=== PATIENT | female | born 1945 | race Caucasian/White ===

== ENCOUNTER 2018-05-17 12:37 | Emergency (ER) | payer OTHER ==
[~2018-05-17] VITALS: Ht 149.9 cm; Wt 55.8 kg
[~2018-05-17 12:37] MED LIST: B-COMPLEX-VITA1 EACH PO; CITRUCEL CLEAR539 G1 PO; CLONAZEPAM 0.50.5 M1 PO; NEXIUM 40 MG CA40 M1 PO; SIMVASTATIN20 MG PO
[2018-05-17] MEDS ORDERED: CRESTOR20 MG PO (12:57)
[2018-05-17] MEDS ORDERED: COZAAR 25 MG TA25 M1 PO (12:57)
[2018-05-17] MEDS ORDERED: NEURONTIN300 MG PO (12:57)
[2018-05-17] MEDS ORDERED: ERGOCALCIF50000 UNIT PO (12:59)
[2018-05-17] MEDS ORDERED: PIOGLITAZONE30 MG PO (13:00)
[2018-05-17] MEDS ORDERED: ZOFRAN ODT4 MG PO (13:00)
[2018-05-17 14:47] VITALS: BP 132/68
== END 2018-05-17 14:48 | disposition home or self-care (01) ==
LOC: M.ERS 12:37
DX: S92.152A Displaced avulsion fracture (chip fracture) of left talus, initial encounter for closed fracture (principal); K21.9 Gastro-esophageal reflux disease without esophagitis; E78.5 Hyperlipidemia, unspecified; F41.9 Anxiety disorder, unspecified; M19.90 Unspecified osteoarthritis, unspecified site; F17.200 Nicotine dependence, unspecified, uncomplicated; Z90.49 Acquired absence of other specified parts of digestive tract; Z90.710 Acquired absence of both cervix and uterus; Z88.1 Allergy status to other antibiotic agents; Z88.0 Allergy status to penicillin; X50.1XXA Overexertion from prolonged static or awkward postures, initial encounter; Y93.89 Activity, other specified; Y92.89 Other specified places as the place of occurrence of the external cause; Y99.8 Other external cause status

== ENCOUNTER → 2018-07-25 | Outpatient (CLI) | payer OTHER ==
[~2018-07-25] MED LIST changes: +COZAAR 25 MG TA25 M1 PO; +CRESTOR20 MG PO; +ERGOCALCIF50000 UNIT PO; +NEURONTIN300 MG PO; +PIOGLITAZONE30 MG PO; +ZOFRAN ODT4 MG PO
== END ==
LOC: M.RAD 07-18 09:00
DX: M81.0 Age-related osteoporosis without current pathological fracture (principal)

== ENCOUNTER 2019-06-29 08:21 | Inpatient (IN) | payer OTHER ==
[~2019-06-29] VITALS: Ht 149.9 cm; Wt 48.1 kg
[2019-06-29 08:27] VITALS: BP 153/55
[2019-06-29] MEDS ORDERED: OMEPRAZOLE40 MG PO (08:45)
[2019-06-29] MEDS ORDERED: GLIMEPIRIDE1 MG PO (08:45)
[2019-06-29] MEDS ORDERED: VITAMIN D250 MCG PO (08:46)
[2019-06-29] MEDS ORDERED: ZANTAC 150MG T150 M1 PO (08:46)
[2019-06-29 09:17] LABS: ABSOLUTE BASOPHILS 0.1 thou/uL (0.0-0.2); ABSOLUTE LYMPHOCYTES 1.1 thou/uL (0.8-5.3); ABSOLUTE MONOCYTES 0.7 thou/uL (0.0-1.2); ABSOLUTE NEUTROPHILS 10.1 thou/uL (1.6-8.1); BASOPHILS 0.6 %; EOSINOPHILS 0.2 %; HEMATOCRIT 40.6 % (37.0-47.0); HEMOGLOBIN 13.7 gm/dL (12.0-15.0); LYMPHOCYTES 8.8 %; MCHC 33.8 g/dL (28.0-37.0); MCV 91.7 fL (80.0-100.0); MONOCYTES 5.8 %; MPV 7.4 fl. (7.2-11.1); NUCLEATED RBCS 0 /100WBC; PLATELET COUNT* 293 thou/uL (150-400); POLYS 84.6 %; RBC 4.43 mil/uL (4.20-5.00); RDW-CV 14.3 % (10.5-14.5)
[2019-06-29 09:28] LABS: CALCIUM 8.6 mg/dL (8.5-10.1); CREATININE 0.7 mg/dL (0.6-1.3); POTASSIUM 3.8 mmol/L (3.5-5.1)
[2019-06-29 09:40] LABS: ALBUMIN 3.7 g/dL (3.4-5.0); TOTAL BILIRUBIN 0.6 mg/dL (<0.1-1.0); TOTAL PROTEIN 7.3 g/dL (6.4-8.2)
[2019-06-29 10:32] LABS: URINE BILIRUBIN NEGATIVE (Negative); URINE BLOOD NEGATIVE (Negative); URINE CLARITY CLEAR; URINE COLOR YELLOW; URINE GLUCOSE-RANDOM NEGATIVE (Negative); URINE KETONES NEGATIVE (Negative); URINE LEUKOCYTES-REFLEX NEGATIVE (Negative); URINE NITRITE-REFLEX NEGATIVE (Negative); URINE PROTEIN NEGATIVE (Negative); URINE UROBILINOGEN 0.2 E.U./dl (0.2-1.0)
--- NOTE | 2019-06-29 11:20 | EKG ---
[place] [address] ELECTROCARDIOGRAM REPORT Name: MEGAN ZENG Room: [place] [address] ADM IN .R.#: [id number] Admission: 06/29/19 Attend Phys: Joe Solis, Discharge: Date of : 41 Date of Service: 06/29/19 0900 Report #: [id number] THIS REPORT FOR: cc: Harrison Pedor Ghaison F. DO Holkins,Homar Molina MD [facility] ~ THIS REPORT FOR: //name// [facility] ED Test Date: 2019-06-29 Test Time: 09:00:27 Pat Name: MEGAN ZENG Department: Room: [facility] Gender: F Incident Response Specialist: [facility] : 1945 Requested By: Nawaf Orellana Order Number: [id number] : Homar Billy Measurements Intervals [place] Rate: 64 P: 87 ND: 152 QRS: -21 QRSD: 102 T: 39 QT: 447 QTc: 462 Interpretive Statements Sinus rhythm Borderline left axis deviation Baseline wander in lead(s) V5 Compared to ECG 01/04/2006 11:11:15 Myocardial infarct finding no longer present Electronically Signed On 06-29-2019 11:19:14 [employer]FETERIA COOK by Homar Billy [email or web address] <ELECTRONICALLY SIGNED> By: Homar Billy MD, [facility] 06/29/19 1119 9 9 Homar Billy MD, [facility] /EPI
[2019-06-29 11:24] VITALS: BP 124/78
[2019-06-29 11:45] VITALS: BP 140/43
[2019-06-29 16:19] VITALS: BP 139/69
--- NOTE | 2019-06-29 19:00 | NUR ---
1145: PATIENT ADMITTED TO 107 FROM ER. REPORT REC'D, ASSESSMENT AND ORIENTATION TO /POC DONE. ~TJRN 1300: NG TUBE PLACED AFTER PATIENT VOMITING. MEASURES TO 60, LIS. PATIENT AMY WELL. ~TJRN SEE MAR FOR PAIN CONTROL. IV FLUIDS INFUSING W/O DIFF AT THIS TIME. RM DARKENED PER PATIENT REQUEST. HOB UP TO PATIENT COMFORT. IV ON. CALL LIGHT IN REACH. ~TJRN
[2019-06-29 21:57] VITALS: BP 138/85
[2019-06-30 04:21] LABS: CALCIUM 7.2 mg/dL (8.5-10.1); CREATININE 0.6 mg/dL (0.6-1.3); MAGNESIUM 1.6 mg/dL (1.8-2.4); POTASSIUM 3.5 mmol/L (3.5-5.1)
[2019-06-30 04:22] LABS: HEMATOCRIT 39.5 % (37.0-47.0); HEMOGLOBIN 13.2 gm/dL (12.0-15.0); MCH 30.5 pg (26.0-34.0); MCHC 33.4 g/dL (28.0-37.0); MCV 91.4 fL (80.0-100.0); MPV 7.4 fl. (7.2-11.1); RBC 4.32 mil/uL (4.20-5.00); RDW-CV 14.6 % (10.5-14.5); WBC 13.1 thou/uL (4.0-11.0)
--- NOTE | 2019-06-30 06:23 | NUR ---
PATIENT RECEIVED FENTANYL 75 MCG Q2 FOR PAIN RATED 9/10 MOST ASSESSMENTS. NG TUBE HAD 200 ML OUTPUT OVERNIGHT. MAG WAS 1.6 GAVE IV MAG THIS MORNING. UP TO BATHROOM. STILL HAS SOME NAUSEA, GAVE ZOFRAN WHEN DUE. PLAN IS TO US CONSERVATIVE MANAGEMENT CONTINUE NG TUBE AND XRAYS. WILL CONTINUE TO FOLLOW PLAN OF CARE.
[2019-06-30 08:06] VITALS: BP 131/54
[2019-06-30 16:00] VITALS: BP 135/62
--- NOTE | 2019-06-30 17:08 | NUR ---
PT A&Ox4. VITALS STABLE. IV PLACED BY INFUSION IN LEFT FA, PT COMPLAINED THAT HER LEFT WRIST IV "BURNED". NAUSEA CONTROLLED WITH ZOFRAN. PAIN CONTROLLED WITH FENTANYL. UP STAND BY. NG TUBE HOOKED TO LIS.
--- NOTE | 2019-06-30 17:31 | NUR ---
PT.IN BED. NG TO LIS. SHE SAID SHE LIVES ALONE. DAUGHTER IS SUPPORTIVE BUT WORKS DURING THE DAY. SHE HAS A CANE . SHE IS NORMALLY INDEPENDENT AND ACTIVE. SHE HAS NO HX OF HH. DAUGHTER BROUGHT DPOA AND IS ON CHART.
[2019-06-30 21:17] VITALS: BP 130/58
[2019-07-01 04:37] LABS: HEMATOCRIT 37.8 % (37.0-47.0); HEMOGLOBIN 12.7 gm/dL (12.0-15.0); MCH 30.7 pg (26.0-34.0); MCHC 33.6 g/dL (28.0-37.0); MCV 91.4 fL (80.0-100.0); MPV 7.5 fl. (7.2-11.1); RBC 4.13 mil/uL (4.20-5.00); RDW-CV 14.3 % (10.5-14.5)
[2019-07-01 04:56] LABS: ALBUMIN 2.8 g/dL (3.4-5.0); CREATININE 0.4 mg/dL (0.6-1.3); MAGNESIUM 2.2 mg/dL (1.8-2.4); PHOSPHORUS* 1.6 mg/dL (2.5-4.9); TOTAL BILIRUBIN 1.1 mg/dL (<0.1-1.0)
--- NOTE | 2019-07-01 05:03 | NUR ---
PATIENT UP TO RESTROOM FINE, OUTPUT ON NG TUBE 300MLS OVERNIGHT. TAPERED OFF THE IV PAIN MEDS AND STILL REQUESTING ZOFRAN. SHE DID NOT VOMIT AND RATED HER PAIN A 3/10 ON MOST ASSESSMENTS. SHE WAS GIVEN SMALL AMOUNTS OF ICE CHIPS AND RECEIVED IV FLUIDS AND MEDS SCHEDULED. WILL CONTINUE TO FOLLOW PLAN OF CARE.
[2019-07-01 18:00] VITALS: BP 140/72
--- NOTE | 2019-07-01 19:40 | NUR ---
PATIENT COOPERATIVE THROUGHOUT SHIFT. PATIENT HAS XRAY AT 2030 AND THAT SHOULD BE LAST ONE OF THE NIGHT.
[2019-07-01 20:00] VITALS: BP 127/68
[2019-07-02] VITALS (7 sets, daily range): BP systolic 103–131; BP diastolic 58–67
--- NOTE | 2019-07-02 05:43 | NUR ---
Alert and oriented x 4. She is up with stand by assist to the bathroom. She has had alot of drainage from NG tube,which is low intermitten suction. She has had only ice chips. She had K+ replaced and this am it is in normal range. Vitals are stable. She had nausea med x 2 this shift.
[2019-07-02 09:22] LABS: HEMATOCRIT 37.2 % (37.0-47.0); HEMOGLOBIN 12.7 gm/dL (12.0-15.0); MCH 31.3 pg (26.0-34.0); MCHC 34.1 g/dL (28.0-37.0); MCV 91.6 fL (80.0-100.0); RBC 4.06 mil/uL (4.20-5.00); WBC 9.6 thou/uL (4.0-11.0)
[2019-07-02 09:34] LABS: PROTIME 10.4 Seconds (9.20-11.50)
[2019-07-02 09:40] LABS: ALBUMIN 2.7 g/dL (3.4-5.0); CREATININE 0.6 mg/dL (0.6-1.3); PHOSPHORUS* 1.6 mg/dL (2.5-4.9); POTASSIUM 3.5 mmol/L (3.5-5.1); TOTAL BILIRUBIN 1.2 mg/dL (<0.1-1.0); TOTAL PROTEIN 6.2 g/dL (6.4-8.2)
--- NOTE | 2019-07-02 19:00 | NUR ---
PATIENT TO SURGERY THIS AM 0855. RETURN FROM SURGERY 1140. MID ABOMINAL DRSG NOTED CDI. NG TO LIS. SCDs BLE ON, FUNCTIONING APPROP. IV FLUIDS INFUSING W/O DIFF. HOB UP TO PATIENT COMFORT. CALL LIGHT IN REACH. MIN PAIN VOICED. HRLY ROUNDS DONE. ICE CHIPS GIVEN. ~TJRN
[2019-07-03 03:30] VITALS: BP 109/61
[2019-07-03 04:23] LABS: HEMATOCRIT 35.5 % (37.0-47.0); HEMOGLOBIN 11.9 gm/dL (12.0-15.0); MCH 30.9 pg (26.0-34.0); MCHC 33.7 g/dL (28.0-37.0); MCV 91.8 fL (80.0-100.0); MPV 7.3 fl. (7.2-11.1); RBC 3.87 mil/uL (4.20-5.00); WBC 10.8 thou/uL (4.0-11.0)
[2019-07-03 04:36] LABS: CALCIUM 6.2 mg/dL (8.5-10.1); CREATININE 0.4 mg/dL (0.6-1.3); MAGNESIUM 1.9 mg/dL (1.8-2.4)
[2019-07-03 04:58] LABS: POTASSIUM 3.8 mmol/L (3.5-5.1)
--- NOTE | 2019-07-03 05:21 | NUR ---
Alert and oriented x 4. Up with assist to the bedside commode. Midline incision with gauze and opsite dressing and she has abdominal binder in place. She has voided adequately. Vitals are stable. She had pain meds x 1. O2 is at 3L n/c and pulse ox is on. NG is to LIS and she's had about 200 mls output. She did sleep about 2-3 hours.
[2019-07-03 07:48] VITALS: BP 112/54
--- NOTE | 2019-07-03 11:14 | NUR ---
PT.HAS SURGERY FOR SBO YESTERDAY. REMAINS NPO EXCEPT ICE. HAS NG THAT CAN BE CLAMPED FOR AMBULATION. SHE IS ANXIOUS TO WALK WITH THERAPY TODAY. WILL FOLLOW.
--- NOTE | 2019-07-03 17:18 | NUR ---
PT A&Ox4. VITALS STABLE. NPO EXCEPT ICE. PT HAD SMALL BM ON SHIFT. IV PATENT, INFUSING. DRESSING C/D/I. ABD BINDER IN PLACE. CALL LIGHT WITHIN REACH. WILL CONTINUE TO MONITOR. NG TO LIS.
[2019-07-03 19:50] VITALS: BP 118/67
[2019-07-04] VITALS: BP 128/63
[2019-07-04 04:00] VITALS: BP 111/69
[2019-07-04 05:15] LABS: HEMATOCRIT 33.4 % (37.0-47.0); HEMOGLOBIN 11.1 gm/dL (12.0-15.0); MCH 30.6 pg (26.0-34.0); MCHC 33.4 g/dL (28.0-37.0); MCV 91.5 fL (80.0-100.0); MPV 7.2 fl. (7.2-11.1); RBC 3.65 mil/uL (4.20-5.00); RDW-CV 13.8 % (10.5-14.5); WBC 12.9 thou/uL (4.0-11.0)
[2019-07-04 05:34] LABS: CALCIUM 6.7 mg/dL (8.5-10.1); CREATININE 0.5 mg/dL (0.6-1.3); MAGNESIUM 1.7 mg/dL (1.8-2.4); PHOSPHORUS* 1.5 mg/dL (2.5-4.9); POTASSIUM 3.5 mmol/L (3.5-5.1)
[2019-07-04 05:35] LABS: ALBUMIN 2.2 g/dL (3.4-5.0); CALCIUM 6.6 mg/dL (8.5-10.1); CREATININE 0.5 mg/dL (0.6-1.3); POTASSIUM 3.5 mmol/L (3.5-5.1); TOTAL PROTEIN 5.5 g/dL (6.4-8.2)
--- NOTE | 2019-07-04 06:37 | NUR ---
ASSUMED CARE OF PT 07/03/19 AT APPROX 1930, PT A&OX4, PT ON ROOM AIR, VSS, NG TUBE IN PLACE ON LIS, PAIN AND ANTIEMETIC MEDS REQUESTED AND GIVEN ORDERED, ASSESSMENTS AND HOURLY ROUNDINGS COMPLETED. WILL CONTINUE TO MONITOR.
[2019-07-04 07:25] VITALS: BP 110/51
[2019-07-04 16:00] VITALS: BP 124/66
--- NOTE | 2019-07-04 17:21 | NUR ---
PT REMIANED ALERT AND ORIENTED. PT RESTING IN BED AND UP WLAKING IN HALLS. NEW IV PLACED, MIDLINE WORKING WITHOUT COMPLICATIONS. FALL RISK PRECAUITONS IN PLACE. HOURLY ROUNDING COMPLETED. WILL CONTINUE TO MONITOR.
[2019-07-04 19:20] VITALS: BP 120/63
[2019-07-04 23:12] VITALS: BP 122/59
--- NOTE | 2019-07-05 04:06 | NUR ---
ASSUMED CARE OF PT 07/04/19 AT APPROX 1930, PT A&OX4, PT ON ROOM AIR, NG TUBE IN PLACE AND CLAMPED, PT UP WITH SB ASSIST, VSS, IV FLUIDS INFUSING, PAIN MEDS REQUESTED AND GIVEN ORDERED. ASSESSMENTS AND HOURLY ROUNDINGS COMPLETED, WILL CONTINUE TO MONITOR.
[2019-07-05 04:12] LABS: HEMATOCRIT 32.7 % (37.0-47.0); HEMOGLOBIN 11.1 gm/dL (12.0-15.0); MCH 30.7 pg (26.0-34.0); MCHC 33.9 g/dL (28.0-37.0); MCV 90.6 fL (80.0-100.0); MPV 6.8 fl. (7.2-11.1); RBC 3.61 mil/uL (4.20-5.00); RDW-CV 13.9 % (10.5-14.5); WBC 12.6 thou/uL (4.0-11.0)
[2019-07-05 04:24] LABS: CALCIUM 6.9 mg/dL (8.5-10.1); CREATININE 0.4 mg/dL (0.6-1.3); MAGNESIUM 1.8 mg/dL (1.8-2.4); POTASSIUM 3.6 mmol/L (3.5-5.1)
[2019-07-05 04:27] LABS: CREATININE 0.4 mg/dL (0.6-1.3); MAGNESIUM 1.8 mg/dL (1.8-2.4); PHOSPHORUS* 1.6 mg/dL (2.5-4.9); POTASSIUM 3.6 mmol/L (3.5-5.1)
[2019-07-05 07:15] VITALS: BP 121/52
--- NOTE | 2019-07-05 12:25 | OP ---
[address] [address] OPERATIVE REPORT Name: MEGAN ZENG Room: [address] IN M.R.#: [id number] Admission: 06/29/19 Attend Phys: Joe Solis MD Discharge: Date of : 41 Report #: [id number] THIS REPORT FOR: //name// cc: Harrison Pedro Ghaison F. DO ~ THIS REPORT FOR: //name// CC: Harrison Solis DICTATED BY: Amol Alvarez DO DATE OF SERVICE: 07/02/2019 PREOPERATIVE DIAGNOSIS: Small-bowel obstruction. POSTOPERATIVE DIAGNOSIS: Small-bowel obstruction secondary to a single adhesive band. SURGEON: Arian Lozano DO. SECURITY CONTROL ROOM OFFICER: Yan Alvarez, PGY5. OPERATION PERFORMED: Diagnostic laparoscopy converted to laparotomy with release of small-bowel obstruction by lysing adhesion. ANESTHESIA: General. ESTIMATED BLOOD LOSS: 5 mL. SPECIMENS: None. COMPLICATIONS: None. FINDINGS: A mid small-bowel obstruction caused by single adhesive band. We were able to release the band and the obstruction. We ran the small bowel 3 times with no obvious masses or other areas of obstruction identified. DESCRIPTION OF PROCEDURE: After the appropriate consents were obtained, this patient was taken to the operating room, and laid in the supine position. She had SCDs placed on her bilateral lower extremities and safety strap placed across her lap. Both arms placed out to her sides. The patient had all lines placed by Anesthesia. She was sedated and intubated by the anesthesiologist without difficulty. Her abdomen was then exposed, prepped, and draped in standard sterile fashion. She was given perioperative antibiotics at this time. A timeout was performed to correctly identify the [place] [address] OPERATIVE REPORT Name: MEGAN ZENG Room: [address] IN [facility].#: [id number] Admission: 06/29/19 Attend Phys: Joe Solis MD Discharge: Date of : 41 Report #: [id number] elected to start this procedure laparoscopically, so we made a supraumbilical incision using #11 blade scalpel. This was carried down through the thin subcutaneous tissue until we encountered the anterior abdominal wall fascia. Once the fascia was encountered, it was scored using electrocautery and grasped between 2 Alexander clamps. It was then elevated and we entered the patient's peritoneal cavity bluntly. We used a finger to sweep the anterior abdominal wall to ensure there were no sehrin-incisional adhesions, none were present. We then placed 2 separate 0 Vicryl stitches on either side of the fascia. A 5 mm Say trocar was then introduced into the patient's abdomen and her abdomen was insufflated to 15 mmHg. This was secured using the previously placed 0 Vicryl stitches. We then introduced the 5 mm 0-degree scope into the patient's abdomen and there was some free fluid present, which appeared to be mostly serous fluid and she also had some significant distention to her small bowel She had some decompressed small bowel in her right lower quadrant and she had some obvious chronic changes to her liver. We did not see any other abnormalities initially. Given the distention of her small bowel and the inability to visual identify any obvious cause of the obstruction, we elected to abort the laparoscopic portion of this procedure and opened via laparotomy incision. The camera was removed along with the Say trocar as well as our previously placed 0 Vicryl stitches. We then extended our incision inferiorly towards just below the umbilicus using #10 blade scalpel. We then carried this down using electrocautery and safely opened the patient's fascia and peritoneal cavity. Upon doing so, we were able to extract the small bowel and ran it until we identified a point of obstruction. There appeared to be a small adhesive band in the mid small bowel, which was compressing it. We were able to get underneath this band and lyse it using electrocautery. Once we did this, we were able to remove the entire small bowel from the patient's abdomen and run it completely. There was an obvious transition point where the band was causing the obstruction. There was a small amount of ecchymosis along the mesenteric border, but the bowel appeared very healthy and pink and there were no signs of strangulation or necrosis. There was obvious peristalsis occurring as well on this portion of bowel. We ran the small bowel 2 more separate times and again did not identify any masses in the mesentery and there were no obvious other points of obstruction. We ran from TI all the way to ligament of Treitz. We also palpated her colon, which had a significant amount of stool present, but did not feel any obvious masses. We elected to irrigate copiously with 2 liters of warm saline. This was done until all the free fluid was clear and suctioned free. At the completion of the case, we again looked at the small bowel near the portion where the adhesion was attached and again it appeared to be rather healthy. There were no signs of any type of ischemia. We returned the small bowel into the patient's intra-abdominal cavity and ensured there was no twisting of the mesentery. Once this was completed, we closed the patient's fascia using #1 looped PDS suture. This was closed with a single suture and then we closed the patient's subcutaneous tissue using 3-0 Vicryl stitch and then the skin was closed using a running 4-0 Monocryl stitch in a [address] [address] OPERATIVE REPORT Name: MEGAN ZENG Room: [address] IN [facility].#: [id number] Admission: 06/29/19 Attend Phys: Joe Solis MD Discharge: Date of : 41 Report #: [id number] subcuticular fashion. The skin was adequately cleaned and dried completely and we placed Mastisol, Steri-Strips and a gauze and a sterile Tegaderm over this incision. All counts were correct x [address] Lozano was present and scrubbed for the entire procedure. The patient was allowed to awaken and subsequently extubated in the OR without difficulty. She had a Abdalla catheter removed at the completion of the procedure as well. She will be transported to PACU for further recovery and then returned to her room for observation. We left her NG tube in place for now until she starts to have bowel function. <ELECTRONICALLY SIGNED> By: Arian Lozano DO 07/05/19 1225 1424 [id number] Lozano DO /lakia
--- NOTE | 2019-07-05 16:38 | NUR ---
PT REMAINED ALERT AND ORIENTED. PT WAS DISTRESSED OVER NOT HAVING CALL LIGHT ANSWERED WHEN SHE FELT IT WAS APPROPRIATE. PT NEEDS WERE MET AND IMPROVEMENT COORDINATOR TALKED WITH PATIENT ABOUT THEIR CONCERNS. FLUIDS STOPPED, NG TUBE REMOVED. FALL RISK PRECAUTIONS IN PLACE. FEET ELEVATED PER REQUESTS. HOURLY ROUNDING COMPLETED. WILL CONTINUE TO MONITOR.
[2019-07-05 19:57] VITALS: BP 129/53
--- NOTE | 2019-07-06 04:21 | NUR ---
ASSUMED CARE OF PT 07/05/19 AT APPROX 1930, PT A&OX4, PT ON ROOM AIR, VSS, PAIN AND ANTIEMETIC MEDS REQUESTED AND GIVEN ORDERED. ASSESSMENTS AND HOURLY ROUNDINGS COMPLETED. WILL CONTINUE TO MONITOR.
[2019-07-06 08:23] VITALS: BP 130/46
[2019-07-06 10:02] LABS: HEMATOCRIT 33.1 % (37.0-47.0); HEMOGLOBIN 11.3 gm/dL (12.0-15.0); MCH 30.9 pg (26.0-34.0); MCHC 34.1 g/dL (28.0-37.0); MCV 90.7 fL (80.0-100.0); MPV 7.1 fl. (7.2-11.1); RBC 3.65 mil/uL (4.20-5.00); RDW-CV 14.1 % (10.5-14.5); WBC 9.1 thou/uL (4.0-11.0)
[2019-07-06 10:10] LABS: CREATININE 0.6 mg/dL (0.6-1.3); MAGNESIUM 1.6 mg/dL (1.8-2.4); PHOSPHORUS* 2.3 mg/dL (2.5-4.9); POTASSIUM 3.5 mmol/L (3.5-5.1)
--- NOTE | 2019-07-06 14:21 | NUR ---
Nutrition: Pt admitted with partial SBO. Seen for LOS. Diet is advanced now to low fiber. Pt was coming out of restroom at visit. She denied any concerns/questions. Hx, labs, meds noted. Her albumin is severely low 2.2, prealb 6.9. RD will order Beneprotein for added protein intake at this time. Wt: 105#. Mild risk.
[2019-07-06 15:49] VITALS: BP 127/51
--- NOTE | 2019-07-06 16:10 | NUR ---
PT SOMEWHAT PROGRESSING TOWARDS GOALS THIS SHIFT. ASSUMED CARE OF PT AROUND 0730 THIS AM. REFER TO ASSESSMENT. PT DIET ADVANCED TO SOFT/ FIBER RESTRICTED. PT SOMEWHAT TOLERATING, CONTINUES TO HAVE NAUSEA THAT IS SOMEWHAT IMPROVED WITH PRN IV ZOFRAN. PT STARTED ON HOME MEDICATIONS. PT FREQUENTLY WALKING THE HALLS. MAG REPLACED PER PROTOCOL. PT REPORTS MULTIPLE BM'S THIS SHIFT AND STATES SHE HAS DIARRHEA. EDUCATED PT ON HER RECENT DIET AND LAXATIVES. CODE STATUS CLARIFIED WITH PHYSICIAN THIS SHIFT. NO OTHER CONCERNS AT THIS TIME. CLWR. WCTM.
[2019-07-06 19:30] VITALS: BP 131/64
[2019-07-07] VITALS: BP 130/71
[2019-07-07 04:00] VITALS: BP 120/60
--- NOTE | 2019-07-07 04:34 | NUR ---
PATIENT HAS REMAINED ALERT AND ORIENTED X 4 THROUGHOUT THE SHIFT AND RESTING WELL TONIGHT ON HOURLY ROUNDS. UP TO BR SBA TO VOID. HAS DENIED NEED FOR PAIN OR NAUSEA MEDICATION. VITAL SIGNS STABLE WITH LOW-GRADE TEMP. FLUIDS AND IS ENCOURAGED. STERI-STRIPS AND ABDOMINAL BINDER INTACT TO ABDOMEN. CONTINUE TO MONITOR.
[2019-07-07 08:00] VITALS: BP 120/67
[2019-07-07] MEDS ORDERED: MIRALAX17 GM PO ×2 (08:41)
[2019-07-07] MEDS ORDERED: NORCO 5-325 TA1 EAC1 PO ×2 (08:41)
--- NOTE | 2019-07-07 08:44 | NUR ---
PER PATIENT'S REQUEST, SHE WANTS TO DISCONTINUE PHYSICAL THERAPY SHE IS INDEPENDENT WITH ALL MOBILITIES. THIS IS CONFIRMED BY RN. PATIENT DISCHARGED 07/04/19. DARWIN JONES, MPT
[2019-07-07 08:57] VITALS: BP 120/60
[2019-07-07 11:47] VITALS: BP 120/60
--- NOTE | 2019-07-07 13:33 | NUR ---
PT.TO DISCHARGE HOME TODAY WITH SELF CARE. PT.UP IN HALLS AD CRISELDA. TOLERATING DIET. HAVING BMS. SHE DENIED NEEDS. HER DAUGHTER WILL PICK HER UP THIS AFTERNOON.
--- NOTE | 2019-07-07 15:09 | NUR ---
PT DISCHARGED TO HOME WITH DAUGHTER AT 1435. IV OUT. PT STABLE. DENIED PAIN. DRESSING C/D/I. ABD BINDER IN PLACE. PRESCRIPTIONS SENT EFAX TO PHARMACY.
[2019-07-08] MEDS ORDERED: BACTRIM DS TAB1 EACH PO (08:09)
== END 2019-07-07 15:12 | disposition home or self-care (01) | DRG 336 ==
LOC: M.ERS 08:21 → M.TBA-ER 10:40 → M.ORTHSURG 10:40
PROVIDERS: Emergency Medicine; Internal Medicine; Surgery; ADMIT Internal Medicine
PROC: 0DN80ZZ Release Small Intestine, Open Approach (ICD-10-PCS; principal; 2019-07-02)
PROC: 0WJG4ZZ Inspection of Peritoneal Cavity, Percutaneous Endoscopic Approach (ICD-10-PCS; principal; 2019-07-02)
PROC: B54NZZA Ultrasonography of Left Upper Extremity Veins, Guidance (ICD-10-PCS; 2019-07-04)
PROC: 05HY33Z Insertion of Infusion Device into Upper Vein, Percutaneous Approach (ICD-10-PCS; 2019-07-04)
DX: K56.50 Intestinal adhesions [bands], unspecified as to partial versus complete obstruction (principal); E44.1 Mild protein-calorie malnutrition; K44.9 Diaphragmatic hernia without obstruction or gangrene; F17.210 Nicotine dependence, cigarettes, uncomplicated; F41.1 Generalized anxiety disorder; K27.9 Peptic ulcer, site unspecified, unspecified as acute or chronic, without hemorrhage or perforation; K59.00 Constipation, unspecified; K21.9 Gastro-esophageal reflux disease without esophagitis; E78.5 Hyperlipidemia, unspecified; E11.9 Type 2 diabetes mellitus without complications; I10 Essential (primary) hypertension; Z66 Do not resuscitate; M19.90 Unspecified osteoarthritis, unspecified site; Z79.899 Other long term (current) drug therapy; Z79.84 Long term (current) use of oral hypoglycemic drugs; Z88.0 Allergy status to penicillin; Z90.49 Acquired absence of other specified parts of digestive tract; Z90.710 Acquired absence of both cervix and uterus; Z88.8 Allergy status to other drugs, medicaments and biological substances; Z68.21 Body mass index [BMI] 21.0-21.9, adult

== ENCOUNTER 2019-07-08 07:27 | Emergency (ER) | payer OTHER ==
[~2019-07-08] VITALS: Ht 149.9 cm; Wt 47.6 kg
[~2019-07-08 07:27] MED LIST changes: +GLIMEPIRIDE1 MG PO; +MIRALAX17 GM PO; +NORCO 5-325 TA1 EAC1 PO; +OMEPRAZOLE40 MG PO; +VITAMIN D250 MCG PO; +ZANTAC 150MG T150 M1 PO
[2019-07-08] MEDS ORDERED: BACTRIM DS TAB1 EACH PO (08:09)
[2019-07-08 08:15] VITALS: BP 126/59
== END 2019-07-08 08:17 | disposition home or self-care (01) ==
LOC: M.ERS 07:27
DX: K91.870 Postprocedural hematoma of a digestive system organ or structure following a digestive system procedure (principal); K21.9 Gastro-esophageal reflux disease without esophagitis; E11.9 Type 2 diabetes mellitus without complications; E78.5 Hyperlipidemia, unspecified; M19.90 Unspecified osteoarthritis, unspecified site; Z90.710 Acquired absence of both cervix and uterus; Z88.0 Allergy status to penicillin; Z88.8 Allergy status to other drugs, medicaments and biological substances